=== PATIENT | female | born 1990 | race Caucasian/White ===

== ENCOUNTER → 2017-04-19 | Outpatient (CLI) | payer BC ==
--- NOTE | ~2017-04-19 | CR253 ---
[facility] A Service of [facility] [place] RADIOLOGY TEXT RESULTS PATIENT: EARNEST ALDRICH LOCATION: [facility] : 88 UNIT #: [id number] AGE: [address]: Mono Evans MD SEX: F ORDER DR: [id number] [facility] [address] [place], [place] [address] [id number] O MR#: [id number] Acc #: [id number] NAME: EARNEST ALDRICH : 1990 SEX: F STUDY DATE/TIME: 04/19/2017 13:50 UNIT: [facility] ROOM: STUDY DESCRIPTION: CR Tibia and Fibula 2 Views Rt Attending Physician: Mono Evans M.D. Referring Physician: Mono Evans M.D. Ordering Physician: Mono Evans M.D. Primary Care Physician: Fawad Sims M.D. MEDICAL IMAGING REPORT This report is preliminary unless electronic signature is present EXAM Right tibia and fibula 2 views 04/19/2017 HISTORY Right lower leg pain status post fall 4 days ago, heard a pop proximal lateral aspect of right lower extremity. FINDINGS There is no evidence of fracture, dislocation, or radiopaque foreign body. IMPRESSION Normal tibia and fibula. Dictated by... Jamie Thomas M.D. THIS IS AN ELECTRONICALLY VERIFIED REPORT Jamie Thomas M.D. at 04/24/2017 12:01 PM KRT/basim TD: 04/20/2017 03:45 JOB #: [id number] MEDICAL IMAGING REPORT Page 1 of 1 COPY
== END | disposition home or self-care (01) ==
LOC: CRAD 13:29
DX: M79.661 Pain in right lower leg (principal)
CPT/HCPCS: 73590